=== PATIENT | male | born 1965 | race Caucasian/White ===

== ENCOUNTER → 2018-12-26 | Outpatient (CLI) | payer OTHER ==
--- NOTE | 2018-12-26 08:30 | Diagnostic Imaging Report ---
EXAMINATION: Right shoulder at 850. INDICATION: Shoulder pain 4 views were obtained. There are no prior studies available for comparison. There is no fracture, dislocation or acute bony abnormality evident. 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 The soft tissues are unremarkable. IMPRESSION: 1. There is no evidence for an acute bony abnormality. 2. If clinical concern regarding an underlying abnormality of the rotator cuff or labrum persists, then MRI would be recommended for further evaluation. Dictated by: Dictated on workstation # [id number]
== END ==
LOC: RAD FS 08:10
PROVIDERS: ATTEND Nurse Practitioner
DX: M25.511 Pain in right shoulder (principal)
CPT/HCPCS: 73030

== ENCOUNTER → 2018-12-26 | Outpatient (CLI) | payer OTHER ==
--- NOTE | 2018-12-26 09:01 | Diagnostic Imaging Report ---
Clinical indication: Patient with pain in chest wall and upper right side. Exam: Chest x-ray PA and lateral views. Comparisons: None. Findings: Lungs/pleura: Minimal bibasilar atelectasis. Otherwise, lungs are clear. There is no pneumothorax. There is no pleural effusion. Mediastinum: Unremarkable. Pulmonary vasculature: Unremarkable. Heart: Unremarkable. Bones/extrathoracic soft tissue: Unremarkable. Impression: There is minimal bibasilar atelectasis. Otherwise, lungs show no radiographic evidence of acute cardiopulmonary process. Dictated by: Dictated on workstation # [id number]
== END ==
LOC: RAD FS 08:46
PROVIDERS: ATTEND Nurse Practitioner
DX: J98.11 Atelectasis (principal)
CPT/HCPCS: 71046

== ENCOUNTER → 2019-01-02 | Outpatient (CLI) | payer OTHER ==
--- NOTE | 2019-01-02 16:47 | Diagnostic Imaging Report ---
PROCEDURE: CT chest without contrast. TECHNIQUE: Multiple contiguous axial images were obtained through the chest without the use of intravenous contrast. INDICATION: Right-sided chest pain and tightness. COMPARISON: No prior chest CTs are available for comparison. FINDINGS: No axillary lymphadenopathy is detected. Mediastinal and hilar evaluation is limited without intravenous contrast but no significant abnormality is seen. No pericardial or pleural fluid is identified. The central airways are patent. Lungs are clear. No infiltrate, nodule or mass is identified. Upper abdomen demonstrates a low-density lesion inferior right lobe of the liver 16 mm in size. This is too small to characterize but may represent cyst. There appear to be renal sinus cysts bilaterally as well. Bony structures are unremarkable. IMPRESSION: Essentially unremarkable noncontrast CT of the chest. No acute abnormality is detected. Dictated by: Dictated on workstation # [id number]
== END ==
LOC: RAD FS 14:41
PROVIDERS: ATTEND Nurse Practitioner
DX: R07.89 Other chest pain (principal)
CPT/HCPCS: 71250